=== PATIENT | male | born 1985 | race Caucasian/White ===

== ENCOUNTER 2018-04-01 00:26 | Emergency (ER) | payer OTHER ==
--- NOTE | 2018-04-01 00:59 | EDPHY ---
H & P Stated Complaint: Dizzy Time Seen by Provider: 04/01/18 00:58 HPI/ROS: HPI CHIEF COMPLAINT: Lightheadedness. HISTORY OF PRESENT ILLNESS: Very pleasant 32-year-old male, otherwise healthy, has a history of hiatal hernia, additionally appendectomy, presents emergency room with lightheadedness. Patient states he just arrived here from [place]. Lives at seen level. He felt lightheaded walking around today. Went home drank water and took a nap however felt somewhat better and then his lightheadedness came back. Lightheadedness described as some weakness. But no chest pain, no shortness of breath, no dizziness, no room spinning. No nausea. No headache. Past Medical History: Hiatal hernia, GERD Past Surgical History: Appendectomy Social History: Denies daily use of drugs, alcohol, tobacco. Resides in [place]. Family History: Noncontributory ROS REVIEW OF SYSTEMS: 10 Systems were reviewed and negative with the exception of the elements mentioned in the history of present illness. Exam Constitutional appears well nontoxic triage nursing summary reviewed, vital signs reviewed, awake/alert. Eyes normal conjunctivae and sclera, EOMI, PERRLA. HENT normal inspection, atraumatic, moist mucus membranes, no epistaxis, neck supple/ no meningismus, no raccoon eyes. Respiratory clear to auscultation bilaterally, normal breath sounds, no respiratory distress, no wheezing. Cardiovascular rate normal, regular rhythm, no murmur, no edema, distal pulses normal. Gastrointestinal soft, non-tender, no rebound, no guarding, normal bowel sounds, no distension, no pulsatile mass. Genitourinary no CVA tenderness. Musculoskeletal no midline vertebral tenderness, full range of motion, no calf swelling, no tenderness of extremities, no meningismus, good pulses, neurovascularly intact. Skin pink, warm, & dry, no rash, skin atraumatic. Neurologic awake, alert and oriented x 3, AAOx3, moves all 4 extremities equally, motor intact, sensory intact, CN II-XII intact, normal cerebellar, normal vision, normal speech. Psychiatric normal mood/affect. Heme/Lymph/Immune no lymphadenopathy. Differential Diagnosis: Includes but is not limited to in a particular order dehydration, electrolyte disturbance, altitude illness Medical Decision Making: Plan for this patient IV establishment IV fluid bolus 1 L normal saline, EK G. Check electrolytes. Re-evaluate. Re-evaluation: EKG interpretation by me on record in [facility] system. Impression time of EKG 1:24 a.m., sinus rhythm rate of 66 no signs of acute cardiac arrhythmia or ischemia. Electrolytes appropriate. EKG is unremarkable. Patient received 1 L fluid and is feeling better. 0215: Re-examination at this time patient feeling better after 1 L. Requesting 2nd L. 2nd L has been ordered. Vital signs are stable. Electrolytes are appropriate. Feeling better. Recommend he remains hydrated, rest. Return emergency room if worsening symptoms. Source: Patient - Personal History Current Tetanus/Diphtheria Vaccine: Yes Current Tetanus Diphtheria and Acellular Pertussis (TDAP): Yes - Medical/Surgical History Hx Asthma: Yes Hx Chronic Respiratory Disease: No Hx Diabetes: No Hx Cardiac Disease: No Hx Renal Disease: No Hx Cirrhosis: No Hx Alcoholism: No Hx HIV/AIDS: No Hx Splenectomy or Spleen Trauma: No Other PMH: appy, hiatal hernia - Social History Smoking Status: Current every day smoker Constitutional: Initial Vital Signs Temperature (C) 36.3 C 04/01/18 00:29 Heart Rate 83 04/01/18 00:29 Respiratory Rate 16 04/01/18 00:29 Blood Pressure 120/76 04/01/18 00:29 O2 Sat (%) 96 04/01/18 00:29 O2 Delivery Mode Room Air Allergies/Adverse Reactions: amoxicillin [Amoxicillin] Allergy (Unknown, Verified 12/22/12 01:46) codeine [Codeine] Allergy (Unknown, Verified 12/22/12 01:46) Penicillins Allergy (Unknown, Verified 12/22/12 01:46) Sulfa (Sulfonamide Antibiotics) Allergy (Verified 04/01/18 00:33) Home Medications: Medication Instructions Recorded Albuterol [Proventil Inhaler] 1 - 2 puffs IH Q4 12/01/12 Fluticasone/Salmeter 100/50Mcg 1 puffs IH BIDI 12/22/12 [Advair] Protonix 40mg (*) 04/01/18 Medical Decision Making - Data Points Laboratory Results: Laboratory Results 04/01/18 01:10 04/01/18 01:10 04/01/18 04/01/18 01:10 01:10 WBC 5.47 10^3/uL 10^3/uL (3.80-9.50) RBC 4.71 10^6/uL 10^6/uL (4.40-6.38) Hgb 14.1 g/dL g/dL (13.7-17.5) Hct 40.0 % % (40.0-51.0) MCV 84.9 fL fL (81.5-99.8) MCH 29.9 pg pg (27.9-34.1) MCHC 35.3 g/dL g/dL (32.4-36.7) RDW 12.5 % % (11.5-15.2) Plt Count 158 10^3/uL 10^3/uL (150-400) MPV 11.3 fL fL (8.7-11.7) Neut % (Auto) 51.1 % % (39.3-74.2) Lymph % (Auto) 35.6 % % (15.0-45.0) [place] % (Auto) 10.4 % % (4.5-13.0) Eos % (Auto) 2.2 % % (0.6-7.6) Baso % (Auto) 0.5 % % (0.3-1.7) Nucleat RBC Rel Count 0.0 % % (0.0-0.2) Absolute Neuts (auto) 2.79 10^3/uL 10^3/uL (1.70-6.50) Absolute Lymphs (auto) 1.95 10^3/uL 10^3/uL (1.00-3.00) Absolute Monos (auto) 0.57 10^3/uL 10^3/uL (0.30-0.80) Absolute Eos (auto) 0.12 10^3/uL 10^3/uL (0.03-0.40) Absolute Basos (auto) 0.03 10^3/uL 10^3/uL (0.02-0.10) Absolute Nucleated RBC 0.00 10^3/uL 10^3/uL (0-0.01) Immature Gran % 0.2 % % (0.0-1.1) Immature Gran # 0.01 10^3/uL 10^3/uL (0.00-0.10) Sodium 140 mEq/L mEq/L (135-145) Potassium 3.8 mEq/L mEq/L (3.3-5.0) Chloride 106 mEq/L mEq/L (97-110) Carbon Dioxide 28 mEq/l mEq/l (22-31) Anion Gap 6 mEq/L L mEq/L (8-16) BUN 15 mg/dL mg/dL (7-23) Creatinine 0.9 mg/dL mg/dL (0.7-1.3) Estimated GFR > 60 Glucose 90 mg/dL mg/dL (70-100) Calcium 9.3 mg/dL mg/dL (8.5-10.4) Medications Given: Discontinued Medications Sodium Chloride (Ns) 1,000 mls @ 0 mls/hr IV EDNOW ONE; Wide Open PRN Reason: Protocol Stop: 04/01/18 01:05 Last Admin: 04/01/18 01:11 Dose: 1,000 mls Departure - Departure Disposition: Home, Routine, Self-Care Clinical Impression: Lightheaded Condition: Good Instructions: Lightheadedness (ED) Additional Instructions: 1. Stay well-hydrated drink lots of fluids. 2. Rest. 3. Return to the ER for worsening symptoms Referrals: NONE *PRIMARY CARE P,. [Primary Care Provider] - As per Instructions
[2018-04-01] MEDS: NS 1,000 ML IV ONE ×3 (01:11→02:16)
[2018-04-01 01:19] LABS: PLATELET COUNT 158 10^3/uL (150-400)
[2018-04-01 03:02] VITALS: BP 99/53
--- NOTE | 2018-04-02 05:47 | CPEKG ---
Test Reason : OPEN Blood Pressure : / mmHG Vent. Rate : 066 BPM Atrial Rate : 066 BPM P-R Int : 180 ms QRS Dur : 108 ms QT Int : 410 ms P-R-T Axes : 057 065 026 degrees QTc Int : 430 ms Sinus rhythm Confirmed by Gerald Higginbotham ([id number]) on 04/02/2018 5:47:04 AM Referred By: Confirmed By:Gerald Higginbotham
== END 2018-04-01 03:02 | disposition home or self-care (01) ==
DX: R42 Dizziness and giddiness (principal)